=== PATIENT | female | born 1980 | race African-American/Black ===

== ENCOUNTER 2022-05-12 18:04 | Emergency (ER) | payer SELFPAY ==
[~2022-05-12] VITALS: Ht 175.3 cm; Wt 83.0 kg
[2022-05-12] MEDS ORDERED: ASPIRIN 81 MG CHEW TAB PO ONE (18:30)
[2022-05-12 18:34] LABS: BASOPHILS % 0.4 % (0.0-1.0); EOSINOPHILS # (AUTO) 0.2 (0.0-0.4); EOSINOPHILS % 1.7 % (0.0-6.0); HEMOGLOBIN 11.5 g/dL (12.0-16.0); LYMPHOCYTES # (AUTO) 3.9 (1.0-3.2); LYMPHOCYTES % 41.9 % (18.0-39.1); MEAN CORPUSCULAR HEMOGLOBIN 22.7 pg (28-32); MEAN CORPUSCULAR HGB CONC 30.3 g/dL (31-35); MEAN CORPUSCULAR VOLUME 75.1 fL (81-99); MONOCYTES # (AUTO) 0.6 (0.2-0.8); MONOCYTES % 6.9 % (4.4-11.3); NEUTROPHILS # (AUTO) 4.6 (2.1-6.9); NEUTROPHILS % 48.8 % (38.7-80.0); PLATELET COUNT 250 x10e3/uL (140-360); RED BLOOD COUNT 5.06 x10e6/uL (3.6-5.1); RED CELL DISTRIBUTION WIDTH 17.2 % (11.7-14.4)
[2022-05-12] MEDS ORDERED: CLONAZEPAM1 MG PO (18:43)
[2022-05-12] MEDS ORDERED: CYCLOBENZAPRINE10 MG PO (18:43)
[2022-05-12] MEDS ORDERED: QUETIAPINE FUM100 MG PO (18:43)
[2022-05-12] MEDS ORDERED: PRAVASTATIN SOD40 MG (18:43)
[2022-05-12] MEDS ORDERED: FAMOTIDINE20 MG PO (18:43)
[2022-05-12] MEDS ORDERED: PROMETHAZINE HC25 M1 PO (18:43)
[2022-05-12 18:54] LABS: ALANINE AMINOTRANSFERASE 13 IU/L (0-55); ALBUMIN 3.6 g/dL (3.5-5.0); ALBUMIN/GLOBULIN RATIO 0.9 (0.8-2.0); ALKALINE PHOSPHATASE 66 IU/L (40-150); ANION GAP 13.7 mmol/L (8-16); BLOOD UREA NITROGEN 12 mg/dL (7-26); BUN/CREATININE RATIO 6 (6-25); CALCIUM 8.6 mg/dL (8.4-10.2); CARBON DIOXIDE 23 mmol/L (22-29); CHLORIDE 106 mmol/L (98-107); CREATINE KINASE 133 IU/L (29-168); CREATININE, SERUM 2.01 mg/dL (0.57-1.11); GLUCOSE 84 mg/dL (74-118); POTASSIUM 3.7 mmol/L (3.5-5.1); SODIUM 139 mmol/L (136-145)
[2022-05-12 20:30] VITALS: BP 127/84
== END 2022-05-12 20:30 | disposition home or self-care (01) ==
LOC: ER 18:21
DX: R07.9 Chest pain, unspecified (principal); Z20.822 Contact with and (suspected) exposure to COVID-19; E78.5 Hyperlipidemia, unspecified; R94.31 Abnormal electrocardiogram [ECG] [EKG]; Z86.73 Personal history of transient ischemic attack (TIA), and cerebral infarction without residual deficits
CPT/HCPCS: 36415; 71045; 80053; 82550; 82553; 84484; 85025; 85379; 93005; 99284; U0002

== ENCOUNTER 2022-12-12 02:33 | Emergency (ER) | payer SELFPAY ==
[~2022-12-12] VITALS: Ht 175.3 cm; Wt 83.0 kg
[~2022-12-12 02:33] MED LIST: CLONAZEPAM1 MG PO; CYCLOBENZAPRINE10 MG PO; FAMOTIDINE20 MG PO; PRAVASTATIN SOD40 MG; PROMETHAZINE HC25 M1 PO; QUETIAPINE FUM100 MG PO
[2022-12-12] MEDS ORDERED: BENZONATATE200 MG PO (03:41)
== END 2022-12-12 03:45 | disposition home or self-care (01) ==
LOC: ER 02:35
DX: R05.9 Cough, unspecified (principal); J40 Bronchitis, not specified as acute or chronic; E78.5 Hyperlipidemia, unspecified; K21.9 Gastro-esophageal reflux disease without esophagitis; F41.9 Anxiety disorder, unspecified; Z20.822 Contact with and (suspected) exposure to COVID-19; Z86.73 Personal history of transient ischemic attack (TIA), and cerebral infarction without residual deficits
CPT/HCPCS: 71046; 99283; U0002

== ENCOUNTER 2024-06-08 13:54 | Emergency (ER) | payer OTHER ==
[~2024-06-08] VITALS: Ht 175.3 cm; Wt 83.0 kg
[~2024-06-08 13:54] MED LIST changes: +BENZONATATE200 MG PO; +FLOMAX0.4 MG PO; +KETOROLAC TROME10 MG PO; +NAPROSYN500 MG PO; +ORPHENADRINE C100 MG PO
[2024-06-08 14:22] VITALS: PULSE 98; RESP 20; TEMP 98.5
[2024-06-08] MEDS ORDERED: MEDROL4 M2 PO (14:42)
[2024-06-08] MEDS ORDERED: CYCLOBENZAPRINE10 MG PO (14:42)
[2024-06-08] MEDS ORDERED: DEXAMETHASONE SOD PHOS 10 MG/1 ML VIAL ONE (14:49)
[2024-06-08] MEDS: DEXAMETHASONE SOD PHOS 10 MG/1 ML VIAL IM ONE (14:50)
[2024-06-08 14:54] VITALS: BP 125/70; PULSE 89; RESP 18; O2SAT 100
== END 2024-06-08 15:23 | disposition home or self-care (01) ==
LOC: ER 14:09
DX: M54.42 Lumbago with sciatica, left side (principal); E78.5 Hyperlipidemia, unspecified; K21.9 Gastro-esophageal reflux disease without esophagitis; F41.9 Anxiety disorder, unspecified; F32.A Depression, unspecified; Z86.73 Personal history of transient ischemic attack (TIA), and cerebral infarction without residual deficits
CPT/HCPCS: 99282; J1100

== ENCOUNTER 2025-01-10 18:11 | Emergency (ER) | payer OTHER ==
[~2025-01-10] VITALS: Ht 175.3 cm; Wt 81.6 kg
[~2025-01-10 18:11] MED LIST changes: +MEDROL4 M2 PO
[2025-01-10 18:15] VITALS: PULSE 101; RESP 16; TEMP 102.1
[2025-01-10] MEDS: SODIUM CHLORIDE 0.9% 1000ML 1,000 ML IV ONE (18:44)
[2025-01-10] MEDS: ACETAMINOPHEN 1000 MG/100 ML IV STA (18:44)
[2025-01-10] MEDS: ONDANSETRON HCL INJ 2MG/ML 2ML 2 MG/ML VIAL IV STA (18:44)
[2025-01-10 18:57] LABS: CORONAVIRUS COVID-19 AG NEGATIVE (NEGATIVE); INFLUENZA A AG POSITIVE (NEGATIVE); INFLUENZA B AG NEGATIVE (NEGATIVE)
[2025-01-10 19:00] VITALS: BP 143/82
[2025-01-10 19:02] LABS: BASOPHILS % 0.4 % (0.0-1.0); EOSINOPHILS # (AUTO) 0.1 (0.0-0.4); EOSINOPHILS % 0.6 % (0.0-6.0); HEMATOCRIT 35.4 % (34.2-44.1); HEMOGLOBIN 11.1 g/dL (12.0-16.0); LYMPHOCYTES # (AUTO) 1.6 (1.0-3.2); LYMPHOCYTES % 20.1 % (18.0-39.1); MEAN CORPUSCULAR HEMOGLOBIN 22.4 pg (28-32); MEAN CORPUSCULAR HGB CONC 31.4 g/dL (31-35); MEAN CORPUSCULAR VOLUME 71.4 fL (81-99); MONOCYTES # (AUTO) 0.8 (0.2-0.8); NEUTROPHILS # (AUTO) 5.5 (2.1-6.9); NEUTROPHILS % 68.5 % (38.7-80.0); PLATELET COUNT 188 x10e3/uL (140-360); RED BLOOD COUNT 4.96 x10e6/uL (3.6-5.1); RED CELL DISTRIBUTION WIDTH 16.6 % (11.7-14.4); WHITE BLOOD COUNT 8.01 x10e3/uL (4.8-10.8)
[2025-01-10 19:11] VITALS: PULSE 99; RESP 20; TEMP 98.7; O2SAT 99
[2025-01-10] MEDS ORDERED: TAMIFLU75 MG PO (19:16)
[2025-01-10] MEDS ORDERED: ONDANSETRON ODT4 MG SL (19:16)
[2025-01-10 19:28] LABS: ALBUMIN 3.6 g/dL (3.5-5.0); ALBUMIN/GLOBULIN RATIO 1.1 (0.8-2.0); ANION GAP 11.9 mmol/L (8-16); BILIRUBIN,TOTAL 0.4 mg/dL (0.2-1.2); CALCIUM 8.7 mg/dL (8.4-10.2); CREATININE, SERUM 1.09 mg/dL (0.57-1.11); POTASSIUM 3.9 mmol/L (3.5-5.1); TOTAL PROTEIN 6.8 g/dL (6.5-8.1)
== END 2025-01-10 19:41 | disposition home or self-care (01) ==
LOC: ER 18:17
DX: R50.9 Fever, unspecified (principal); J10.1 Influenza due to other identified influenza virus with other respiratory manifestations; R05.9 Cough, unspecified; R11.2 Nausea with vomiting, unspecified; E78.5 Hyperlipidemia, unspecified; K21.9 Gastro-esophageal reflux disease without esophagitis; F41.9 Anxiety disorder, unspecified; F32.A Depression, unspecified; Z11.52 Encounter for screening for COVID-19; Z86.73 Personal history of transient ischemic attack (TIA), and cerebral infarction without residual deficits
CPT/HCPCS: 36415; 71045; 80053; 85025; 87428; 99284; J0131; J2405; J7030